=== PATIENT | female | born 1945 | race Caucasian/White ===

== ENCOUNTER 2017-04-29 20:50 | Inpatient (IN) | payer MEDICARE, OTHER ==
[~2017-04-29] VITALS: Ht 152.4 cm; Wt 77.1 kg
[2017-04-29] MEDS ORDERED: ASPIRIN 81 MG TAB.CHEW PO ONE (21:00)
[2017-04-29] MEDS ORDERED: METOCLOPRAMIDE HCL 10 MG/2 ML VIAL IV ONE (21:00)
--- NOTE | 2017-04-29 21:00 | NUR ---
PT BIBSELF FROM HOME C/O "HEAD PRESSURE AND HEART PAIN [id number]" PT AOX3 RR EVEN AND UNLABORED. NO SOB NOTED. NAD NOTED. NO NVD AT THIS TIME. PT GOWNED AND PLACED ON MONITOR . PT NOT DIAPHORETIC. DR. MAYER AT BEDSIDE FOR EVAL.
[2017-04-29 21:24] LABS: BASOPHILS % (AUTO) 0.5 % (0.0-2.0); EOSINOPHILS # (AUTO) 0.2 /CMM (0.0-0.7); EOSINOPHILS % (AUTO) 2.5 % (0.0-6.0); HEMATOCRIT 35 % (33-45); HEMOGLOBIN 11.6 g/dL (11.5-14.8); LYMPHOCYTES # (AUTO) 2.6 /CMM (0.8-4.8); LYMPHOCYTES % (AUTO) 40.9 % (20.0-44.0); MEAN CORPUSCULAR HEMOGLOBIN 26 PG (26.0-33.0); MEAN CORPUSCULAR HGB CONC 33 g/dl (31.0-36.0); MEAN CORPUSCULAR VOLUME 80 fL (82-100); MONOCYTES # (AUTO) 0.9 /CMM (0.1-1.30); MONOCYTES % (AUTO) 14.1 % (2.0-12.0); NEUTROPHILS # (AUTO) 2.7 /CMM (1.8-8.9); PLATELET COUNT (AUTO) 293 /CMM (150-450); RDW COEFFICIENT OF VARIATION 14.9 (11.5-15.0); RED BLOOD CELL COUNT(AUTO) 4.41 MIL/uL (4.0-5.2); WHITE BLOOD COUNT (AUTO) 6.4 K/uL (4.3-11.0)
[2017-04-29] MEDS ORDERED: ACETAMINOPHEN 325 MG TABLET ONE (21:28)
[2017-04-29] MEDS ORDERED: ASPIRIN 81 MG TAB.CHEW ONE (21:28)
[2017-04-29] MEDS ORDERED: METOCLOPRAMIDE HCL 10 MG/2 ML VIAL ONE (21:28)
[2017-04-29] MEDS ORDERED: ACETAMINOPHEN 325 MG TABLET PO ONE (21:30)
[2017-04-29 21:34] LABS: CALCIUM, SERUM 8.8 mg/dL (8.5-10.1); CARBON DIOXIDE 27 mmol/L (21-32); CHLORIDE 106 mmol/L (98-107); GLUCOSE 112 mg/dL (74-106); SODIUM SERUM 137 mmol/L (136-145); UREA NITROGEN, BLOOD 24 mg/dL (7-18)
--- NOTE | 2017-04-29 21:40 | NUR ---
PT TO CT.
[2017-04-29 21:43] LABS: TROPONIN I < 0.017 ng/mL (0.00-0.056)
--- NOTE | 2017-04-29 21:46 | NUR ---
PT RETURNED FROM CT.
--- NOTE | 2017-04-29 21:53 | NUR ---
PT AMBULATORY TO RESTROOM.
--- NOTE | 2017-04-29 22:11 | NUR ---
PT AND CANNOT RECALL PT MEDICATION, PER TO BRING MEDS TOMORROW MORNING.
[2017-04-29] MEDS ORDERED: LORAZEPAM 1 MG TABLET PO ONE (23:00)
--- NOTE | 2017-04-29 23:05 | NUR ---
REPORT GIVEN DRAKE SPEARS ON BEHALF OF DRAKE OMALLEY FOR TELE BED 325-2
[2017-04-29] MEDS ORDERED: LORAZEPAM 1 MG TABLET ONE (23:08)
--- NOTE | 2017-04-29 23:14 | NUR ---
PT TRANSFERRED TO [facility] BED 325-2 VIA ACLS PROTOCOL.
[2017-04-30] VITALS: BP 160/63
[2017-04-30] MEDS ORDERED: LORA1TAB PO (00:07)
[2017-04-30] MEDS ORDERED: TELM40TA2 PO (00:07)
[2017-04-30] MEDS ORDERED: ZOLPIDEM TARTRATE 5 MG TABLET ONE (00:19)
[2017-04-30] MEDS ORDERED: Z GUARD REMEDY 2 OZ OINT TP PRN (00:30)
[2017-04-30] MEDS ORDERED: IV NS 0.9% 1,000 ML BAG IV ONE (00:30)
[2017-04-30] MEDS ORDERED: MAGNESIUM HYDROXIDE 30 ML UDC PO PRN (00:30)
[2017-04-30] MEDS ORDERED: ONDANSETRON HCL/PF 4 MG/2 ML VIAL IVP PRN (00:30)
[2017-04-30] MEDS ORDERED: MAG HYDROX/AL HYDROX/SIMETH 30 ML UDC PO PRN (00:30)
[2017-04-30] MEDS ORDERED: ZOLPIDEM TARTRATE 5 MG TABLET PO PRN (00:30)
[2017-04-30] MEDS ORDERED: HYDROCODONE/APAP 5/325MG 1 EACH TABLET PO PRN (00:30)
[2017-04-30] MEDS ORDERED: ACETAMINOPHEN 325 MG TABLET PO PRN (00:30)
[2017-04-30 04:00] VITALS: BP 139/76
--- NOTE | 2017-04-30 06:37 | NUR ---
MANAGER CASH NOTES AWAKE & RESPONSIVE. NOT IN ANY DISTRESS. NO SOB NOTED. DENIES ANY PAIN OR DISCOMFORT AT THIS TIME. WITH IVF INFUSING WELL. MONITORED ACCORDINGLY. CALL LIGHT WITHIN REACH. BED IN LOWEST POSITION. SR UP X 2 FOR SAFETY. WILL ENDORSE TO NEXT SHIFT.
[2017-04-30 08:00] VITALS: BP 145/70
--- NOTE | 2017-04-30 08:20 | NUR ---
MS RN RECEIVED ON BED, AWAKE,ALERT,ORIENTED X4,NOT IN ANY FORM OF DISTRESS, RESPIRATIONS EVEN AND UNLABORED,NO SOB NOTED, LUNGS ARE CLEAR,ABDOEMN SOFT,POSITIVE BOWEL SOUNDS, DENIES PAIN AT THIS TIME.
[2017-04-30] MEDS ORDERED: REGADENOSON 0.4 MG/5 ML DISP.SYRIN IVP ONE (08:32)
--- NOTE | 2017-04-30 10:00 | NUR ---
MS JUAN NPO AT THIS TIME, FOR STRESS TEST W/ DR. SKY.
[2017-04-30 10:20] LABS: THYROID STIMULATING HORMONE 3.809 uIU/mL (0.358-3.74)
--- NOTE | 2017-04-30 11:00 | NUR ---
MS RN WAS SEEN BY DR. MOREL, AWAITING FOR ORDERS.
--- NOTE | 2017-04-30 13:00 | NUR ---
ms rn went down for stress test.
--- NOTE | 2017-04-30 16:30 | NUR ---
ms lulú text dr. luke result of stress test, will be discharge today.
--- NOTE | 2017-04-30 17:11 | NUR ---
ms rn ready to go home, all needs attended, discharge instructions given and understood.
--- NOTE | 2017-04-30 17:20 | NUR ---
ms rn patient went home accompanied by family,instructed to have a follow up w/ primary doctor in one week, no distress noted.
[2017-04-30] MEDS ORDERED: LORAZEPAM 1 MG TABLET PO SCH (22:00)
== END 2017-04-30 17:00 | disposition home or self-care (01) | DRG 880 ==
LOC: ER 20:53 → TELE 23:34 → MED 04-30 08:41
PROVIDERS: ADMIT Family Medicine; ATTEND Family Medicine
DX: F41.9 Anxiety disorder, unspecified (principal); D50.9 Iron deficiency anemia, unspecified; I10 Essential (primary) hypertension; Z90.710 Acquired absence of both cervix and uterus; R79.89 Other specified abnormal findings of blood chemistry
CPT/HCPCS: 36415; 70450-TC; 71010-TC; 80048-TC; 80061-TC; 82728-TC; 83540-TC; 84439-TC; 84443-TC; 84484-TC; 85025-TC; 87081-TC; A4606; A9502; J2765; J2785; J7030; J7042; Z7610

== ENCOUNTER 2018-11-09 10:13 | Outpatient (CLI) | payer MEDICARE, OTHER ==
[~2018-11-09 10:13] MED LIST: LORA1TAB PO; TELM40TA2 PO
== END 2018-11-09 23:59 | disposition home or self-care (01) ==
LOC: RAD 10:13
PROVIDERS: ATTEND Internal Medicine Interventional Cardiology
DX: M47.817 Spondylosis without myelopathy or radiculopathy, lumbosacral region (principal); M48.07 Spinal stenosis, lumbosacral region; M51.25 Other intervertebral disc displacement, thoracolumbar region; M43.16 Spondylolisthesis, lumbar region; M85.88 Other specified disorders of bone density and structure, other site; M12.88 Other specific arthropathies, not elsewhere classified, other specified site; M25.78 Osteophyte, vertebrae
CPT/HCPCS: 72131-TC